=== PATIENT | male | born 1985 | race Caucasian/White ===

== ENCOUNTER 2020-01-02 22:27 | Emergency (ER) | payer SELFPAY ==
[2020-01-02] MEDS ORDERED: ACETAMINOPHEN 325 MG TABLET PO ONE (23:20)
[2020-01-02] MEDS ORDERED: VANCOMYCIN HCL INJ 1000 MG VIAL IV ONE (23:21)
[2020-01-02] MEDS ORDERED: CEFTRIAXONE 1 GM/D5W RTU 1 GM/50 ML RTUPB IV ONE (23:21)
[2020-01-02] MEDS ORDERED: KETOROLAC TROMETHAMINE INJ/PF 30 MG/1 ML SDV IV ONE (23:21)
--- NOTE | 2020-01-02 23:24 | ER Document Report ---
ED Extremity Problem, Upper - General Chief Complaint: Arm Problem Stated Complaint: POSSIBLE BUG BITE Time Seen by Provider: 01/02/20 23:15 Primary Care Provider: [facility] [Provider Group] - Follow up tomorrow DALE COUCH MD [ACTIVE STAFF] - 01/04/20 Notes: Patient is a 34-year-old male that comes emergency department for chief complaint of swelling, redness, and pain in the right forearm that has been developing for the past 2-1/2 days. He states that he started running chills and fevers over the past day. The swelling has become much worse today. He is right-handed. He does admit to IV drug abuse, states he has not injected in the same arm for several days. He did use heroin, the last time he used was this morning and then he took 12 mg of Subutex later, he states his plan is to be on Subutex and off heroin from now on. He was prescribed Subutex, but he is hoping to be prescribed in the future. Patient also admits to recent methamphetamine use. He reports his tetanus is up-to-date within 5 years. He denies any diagnosed medical problems or daily medications. - Related Data Allergies/Adverse Reactions: No Known Allergies Allergy (Unverified 01/02/20 23:52) Past Medical History - General Information source: Patient - Social History Smoking Status: Current Every Day Smoker Frequency of alcohol use: None Drug Abuse: Heroin, Methamphetamine Lives with: Family Family History: Reviewed & Not Pertinent Patient has suicidal ideation: No Patient has homicidal ideation: No Surgical Hx: Negative - Immunizations Immunizations up to date: Yes Hx Diphtheria, Pertussis, Tetanus Vaccination: Yes Review of Systems - Review of Systems Constitutional: See HPI EENT: No symptoms reported Cardiovascular: No symptoms reported Respiratory: No symptoms reported Gastrointestinal: No symptoms reported Genitourinary: No symptoms reported Male Genitourinary: No symptoms reported Musculoskeletal: See HPI Skin: See HPI Hematologic/Lymphatic: No symptoms reported Neurological/Psychological: No symptoms reported Physical Exam - Vital signs Vitals: Temp Pulse Resp BP Pulse Ox 100.1 F 114 H 16 144/94 H 100 01/02/20 22:46 01/02/20 22:46 01/02/20 22:46 01/02/20 22:46 01/02/20 22:46 - Notes Notes: GENERAL: Slightly restless, mildly uncomfortable, however no severe distress HEAD: Normocephalic, atraumatic. EYES: Pupils equal, round, and reactive to light. Extraocular movements intact. ENT: Oral mucosa moist, tongue midline. Oropharynx unremarkable. Airway patent. LUNGS: Clear to auscultation bilaterally, no wheezes, rales, or rhonchi. No respiratory distress. HEART: Borderline tachycardia, normal rhythm, no murmur. ABDOMEN: Soft, non-tender. Non-distended. EXTREMITIES: There is soft tissue swelling and erythema with warmth and tenderness extending from the mid dorsal hand all the way up to just after the elbow. Range of motion of the elbow is slightly limited and patient has difficulty performing full extension. No noted streaking, induration, fluctuance, or ecchymosis. There are 2 small areas which appear to be injection sites versus tiny developing blisters. Radial pulse, capillary refill intact, sensation intact, range of motion of the wrist intact, unremarkable upper extremity otherwise. BACK: no cervical, thoracic, lumbar midline tenderness. No saddle anesthesia, normal distal neurovascular exam. NEUROLOGICAL: Alert and oriented x3. Normal speech. Cranial nerves II through XII grossly intact. PSYCH: Restless but still cooperative SKIN: Warm, dry, normal turgor. No rashes or lesions noted. Course - Re-evaluation Re-evalutation: Patient was pacing around the room when I initially saw him. He is mildly tachycardic, his exam is concerning with erythema and soft tissue swelling consistent with significant cellulitis with a history of IV drug abuse. Temperature is 100.1. Initiating antibiotics. CBC shows mild leukocytosis with elevation of neutrophils but no bandemia. Chemistry unremarkable including glucose. X-ray shows soft tissue swelling but no gas, there is no retained foreign body. On evaluation patient was calm and cooperative. However he got up and started pacing again, he states that he is grateful for care but he needs to leave to be with his , he states he is out of town and he does not want to leave her stranded. Patient did show me that the swelling has reduced, erythema has improved, and now patient can straighten his elbow joint completely when on initial exam he could not. He does appear to be responding to the antibiotics. However because of his overall clinical picture I still recommended admission. He states that he would like to be treated with oral antibiotics and that he will return if he worsens. I did discuss these details at length. Tracing borders with medical pen, prescribing antibiotics, and patient is to return for recheck or if he worsens in any way. I did discuss patient with Dr. Alaniz. Patient does state understanding and agreement. Patient was tachycardic at time of discharge but he was also somewhat anxious and pacing. Blood cultures pending. - Vital Signs Vital signs: Temp Pulse Resp BP Pulse Ox 98.2 F 116 H 16 156/82 H 97 01/03/20 01:30 01/03/20 01:16 01/03/20 01:16 01/03/20 01:16 01/03/20 01:16 - Laboratory Result Diagrams: 01/03/20 00:03 01/03/20 00:03 Laboratory results interpreted by me: 01/03/20 01/03/20 00:03 00:03 WBC 11.7 H RDW 14.3 H Absolute Neuts (auto) 8.7 H Sodium 136.0 L Discharge - Discharge Clinical Impression: Localized swelling of right forearm, Substance abuse Cellulitis Qualifiers: Site of cellulitis: extremity Site of cellulitis of extremity: upper extremity Laterality: right Qualified Code(s): L03.113 - Cellulitis of right upper limb Condition: Stable Disposition: HOME, SELF-CARE Additional Instructions: You have an infection in your right forearm called cellulitis. No obvious abscess is seen at this time. You have been offered admission however we will try oral antibiotics first. Take the antibiotics as prescribed to completion. I recommend that you elevate your arm and rest your arm to help recovery. Follow up with the primary care referral Saturday or return here for a recheck. Avoid any street drugs, follow-up with primary care for Suboxone prescriptions, see referral. Return if you worsen in any way including spreading redness, increased swelling, spiking fever, or any other concerning or worsening symptoms. Prescriptions: Sulfamethoxazole/Trimethoprim [Bactrim Ds Tablet] 1 each PO BID #14 tablet Cephalexin Monohydrate [Keflex 500 mg Capsule] 500 mg PO QID #28 capsule Referrals: [facility] [Provider Group] - Follow up tomorrow DALE COUCH MD [ACTIVE STAFF] - 01/04/20
--- NOTE | 2020-01-03 | RADIOLOGY REPORT (SQ) ---
CLINICAL INDICATION: swelling; gas? foreign body?. . TECHNIQUE: 2 view(s) were obtained of the right forearm. COMPARISON: None. FINDINGS: No acute displaced fracture is identified of the forearm. Alignment appears anatomic. Joint spaces are within normal limits for age. Soft tissue swelling. If wrist or elbow are clinically in suspicion, then dedicated radiography is advised. IMPRESSION: No evidence of acute displaced fracture of the forearm. Soft tissue swelling. No air/gas within the soft tissues
[2020-01-03 00:33] LABS: ABSOLUTE BASOPHILS # (AUTO) 0.1 10^3/uL (0.0-0.2); ABSOLUTE EOSINOPHILS # (AUTO) 0.1 10^3/uL (0.0-0.6); ABSOLUTE LYMPHOCYTES (AUTO) 1.7 10^3/uL (0.5-4.7); ABSOLUTE MONOCYTES (AUTO) 1.2 10^3/uL (0.1-1.4); ABSOLUTE NEUT (AUTO) 8.7 10^3/uL (1.7-8.2); BASOPHILS % (AUTO) 0.5 % (0-2); EOSINOPHILS % (AUTO) 0.4 % (0-6); HEMATOCRIT 44.2 % (37.9-51.0); HEMOGLOBIN 15.8 g/dL (13.5-17.0); LYMPHOCYTES % (AUTO) 14.5 % (13-45); MEAN CORPUSCULAR HEMOGLOBIN 30.4 pg (27.0-33.4); MEAN CORPUSCULAR HGB CONC 35.8 g/dL (32.0-36.0); MEAN CORPUSCULAR VOLUME 85 fl (80-97); MONOCYTES % (AUTO) 10.3 % (3-13); PLATELET COUNT 215 10^3/uL (150-450); RED CELL DISTRIBUTION WIDTH 14.3 % (11.5-14.0); SEGMENTED NEUTROPHILS % (AUTO) 74.3 % (42-78); TOTAL CELLS COUNTED % (AUTO) 100 %; WHITE BLOOD COUNT 11.7 10^3/uL (4.0-10.5)
[2020-01-03 00:53] LABS: ANION GAP 11 (5-19); BLOOD UREA NITROGEN 19 mg/dL (7-20); CARBON DIOXIDE 27 mmol/L (22-30); CHLORIDE 98 mmol/L (98-107); GLUCOSE 101 mg/dL (75-110); POTASSIUM 4.2 mmol/L (3.6-5.0)
[2020-01-03] MEDS ORDERED: SULFAMETHOXAZOLE/TRIMETHOPRIM 800-160 MG TABLET PO ONE (00:59)
[2020-01-03 01:16] VITALS: BP 156/82
== END 2020-01-03 01:31 | disposition home or self-care (01) ==
LOC: ER 22:27
DX: L03.113 Cellulitis of right upper limb (principal); M79.89 Other specified soft tissue disorders; F19.10 Other psychoactive substance abuse, uncomplicated; F17.200 Nicotine dependence, unspecified, uncomplicated
CPT/HCPCS: 99283; 96375; 96365; 96367; 36415; 87040; 85025; 80048; 73090; J1885; J3370; J0696